=== PATIENT | male | born 1940 | race Caucasian/White ===

== ENCOUNTER 2018-07-05 04:40 | Outpatient (CLI) | payer OTHER, SELFPAY ==
[2018-07-05 11:09] LABS: Anion Gap 7.3 mmol/L (3-11); BUN 24 mg/dL (7-18); CO2 30.7 mmol/L (21.0-32.0); Calcium 9.3 mg/dL (8.5-10.1); Chloride 105 mmol/L (98-107); Glucose 113 mg/dL (70-100); Magnesium 2.3 mg/dL (1.8-2.4); Potassium 4.3 mmol/L (3.5-5.1); Sodium 143 mmol/L (136-145)
== END 2018-07-05 05:00 ==
PROVIDERS: PCP Family Medicine; Visit Provider Family Medicine
DX: I10 Essential (primary) hypertension (principal); E83.42 Hypomagnesemia
CPT/HCPCS: 36415; 80048; 83735